=== PATIENT | female | born 1975 | race Caucasian/White ===

== ENCOUNTER 2019-11-12 09:46 | Emergency (ER) | payer OTHER, SELFPAY ==
--- NOTE | 2019-11-12 09:47 | XRR_ITS ---
PROCEDURE INFORMATION: Exam: XR Chest, 1 View Exam date and time: 11/12/2019 9:59 AM Age: 44 years old Clinical indication: Cough/congestion/chest pain TECHNIQUE: Imaging protocol: XR of the chest Views: 1 view. COMPARISON: No relevant prior studies available. FINDINGS: Lungs: No focal peripheral lung consolidation, air bronchogram formation, or silhouette sign. Pleural space: No pleural effusion or pneumothorax. Heart/Mediastinum: The cardiac silhouette is not enlarged. The mediastinal contours are normal. Bones/joints: Right rotator cuff calcific tendinitis. No acute osseous abnormality. Artifact (pen) projecting over the right shoulder girdle. XR/XR chest 1V portable [id number] IMPRESSION: No pneumonia.
[2019-11-12 10:07] LABS: Basophils % 0.4 %; Eosinophils # 0.2 10^3/uL (0.0-0.8); Hematocrit 36.4 % (37.0-47.0); Hemoglobin 11.3 g/dL (11.5-15.3); Lymphocytes # 3.6 10^3/uL (0.8-4.8); Mean Corpuscular Hemoglobin 26.7 pg (28.0-34.0); Mean Corpuscular Volume 85.8 fL (81-99); Mean Platelet Volume 8.8 fL (7.4-10.4); Monocytes # 0.6 10^3/uL (0.2-0.9); Monocytes % 7.8 %; Neutrophils # 3.6 10^3/uL (1.8-7.7); Neutrophils % 44.6 %; Nucleated Red Blood Cells % 0 %; Platelet Count 409 10^3/cmm (130-400); Red Blood Count 4.24 10^6/uL (4.1-5.3); Red Cell Distribution Width 14.9 % (12.1-15.1); White Blood Count 8.1 10^3/uL (4.0-10.0)
[2019-11-12 10:11] VITALS: BP 154/110; PULSE 90; RESP 16; TEMP 36.8; O2SAT 100; BMI 29.0
--- NOTE | 2019-11-12 10:17 | ED_ITS ---
Entered by Michael Tompkins, acting as scribe for Osiel Oakes DO Nov 12, 2019 09:46 HPI - Chest Pain General: Chief Complaint: Chest Pain Stated Complaint: Chest Pain,SOB Time Seen by Provider: 11/12/19 10:19 History of Present Illness: HPI narrative: 44 yo female presents with chest pain. Pt states that she has tightness in her chest. Pt states that the pain has passed but the tightness and shortness of breath is still present. Pt states th at she has had a cough. MD complaint: chest pain Pertinent past history: coronary artery disease Associated symptoms: Reports dyspnea; Deny abdominal pain, fever(s), nausea, palpitations, syncope or vomiting Review of Systems Const: Denies: fever, chills, body aches, fatigue, malaise or night sweats Eyes: Denies: change in vision or blurry vision ENMT: Denies: throat pain, oral sores/lesions, dental pain, nasal discharge or nasal congestion Card: Reports: chest pain; Denies: palpitations, irregular heart rhythm, edema, syncope, shortness of breath on exertion, shortness of breath when lying down or leg pain with exertion Resp: Reports: shortness of breath and non-productive cough; Denies: productive cough or wheezing GI: Denies: abdominal pain, nausea, vomiting, vomiting blood, coffee grounds in vomit, difficulty swallowing, heartburn/indigestion, diarrhea, constipation, cramping, blood in stool or black tarry stool : Denies: flank pain, painful urination, urinary frequency, urinary urgency, urinary incontinence or blood in urine Musc: Denies: neck pain, back pain, extremity pain, extremity swelling, joint pain or joint swelling Skin/Breast: Denies: rash, itching or redness Neuro: Denies: headache, numbness in extremities, weakness in extremities, changes in sensation, lack of coordination, difficulty walking, frequent falls, dizziness, vertigo or confusion Psych: Denies: anxiety, depression, loss of interest, visual hallucinations, auditory hallucinations, suicidal ideation or homicidal ideation Endo: Denies: excessive urination, excessive thirst, tired all the time or cold intolerance Stanley/Lymph: Denies: easy bruising, easy bleeding, petechiae, enlarged lymph nodes or tender lymph nodes PFSH ED PFSH: Statuses (acute, chronic, etc) shown below reflect problem list status as previously entered and may not be historically accurate Surgical History History of (Acute) Social History Smoking and tobacco status: never smoked Physical Exam Const: COMMON NORMALS: average body habitus, oriented x3 and alert GENERAL APPEARANCE: cooperative, comfortable, well kempt and well developed NUTRITIONAL APPEARANCE: not obese ORIENTATION/CONSCIOUSNESS: Yes awake, Yes oriented to person and Yes oriented to place HENMT: COMMON NORMALS: normocephalic, head/scalp atraumatic, EAC's normal, TM's normal bilaterally, external nose normal, moist oral mucous membranes and oropharynx normal HEAD & SCALP: normocephalic and atraumatic NOSE: external nose normal EXTERNAL AUDITORY CANAL: EAC's normal TYMPANIC MEMBRANE: TM's normal bilaterally MOUTH: oral and palatal mucosa normal, lip normal and tongue normal THROAT: posterior oropharynx normal and tonsils normal Eye: COMMON NORMALS: PERRL, EOMs intact bilaterally, conjunctivae normal and no scleral icterus CONJUNCTIVA: Yes conjunctivae normal PUPIL: Yes PERRL Neck/C-Spine: COMMON NORMALS: full ROM, no lymphadenopathy, supple, no meningeal signs and thyroid normal THYROID: thyroid normal and asymmetrical Lymph: LYMPHATIC: no lymphadenopathy noted Resp: COMMON NORMALS: normal respiratory effort, no retractions, no use of accessory muscles and clear to auscultation bilaterally AUSCULTATION: clear to auscultation bilaterally Cardio: COMMON NORMALS: regular rate and regular rhythm RATE: regular rate RHYTHM: regular rhythm HEART SOUNDS: no murmurs GI: COMMON NORMALS: normal to inspection, nondistended, normoactive bowel sounds, soft to palpation and no hepatosplenomegaly PALPATION: Yes soft and Yes no hepatosplenomegaly : COMMON NORMALS: Yes no CVA tenderness BLADDER/KIDNEY EXAM: Yes no CVA tenderness Back/Pelvis: COMMON NORMALS: no CVA tenderness LUMBAR SPINE/LOWER BACK: Yes normal to inspection Extremity: COMMON NORMALS: no clubbing, cyanosis or edema, no calf tenderness and no pedal edema Neuro: COMMON NORMALS: oriented x3 SENSORIUM/ORIENTATION: Yes alert, Yes oriented to person and Yes oriented to place MENINGEAL SIGNS: Yes no meningeal signs Psych: APPEARANCE: Yes well kempt Skin: COMMON NORMALS: no rashes or lesions noted and skin turgor normal GENERAL SKIN EXAM: no rashes or lesions noted and turgor normal Course ED course: Opponent x2-. Discussed with the patient we will discharge. Follow-up with Dr. Felder as an outpatient return if has further problems Vital Signs: Vital signs: Vital Signs Temperature 98.3 F 11/12/19 10:11 Pulse Rate 85 11/12/19 12:56 Respiratory Rate 16 11/12/19 12:56 Blood Pressure 124/89 11/12/19 12:56 Pulse Oximetry 95 11/12/19 12:56 MDM - Chest Pain Lab Data: Labs: Lab Results 11/12/19 11/12/19 11/12/19 Range/Units 10:01 10:01 10:01 WBC 8.1 (4.0-10.0) 10^3/ uL RBC 4.24 (4.1-5.3) 10^6/u L Hgb 11.3 L (11.5-15.3) g/dL Hct 36.4 L (37.0-47.0) % MCV 85.8 (81-99) fL MCH 26.7 L (28.0-34.0) pg MCHC 31.0 (30.0-36.0) g/dL RDW 14.9 (12.1-15.1) % Plt Count 409 H (130-400) 10^3/c mm MPV 8.8 (7.4-10.4) fL Neut % (Auto) 44.6 % Lymph % (Auto) 45.0 % [place] % (Auto) 7.8 % Eos % (Auto) 2.0 % Baso % (Auto) 0.4 % Neut # (Auto) 3.6 (1.8-7.7) 10^3/u L Lymph # (Auto) 3.6 (0.8-4.8) 10^3/u L [place] # (Auto) 0.6 (0.2-0.9) 10^3/u L Eos # (Auto) 0.2 (0.0-0.8) 10^3/u L Baso # (Auto) 0.0 (0.0-0.1) 10^3/u L Nucleated RBC % (a uto) 0 % Nucleated RBCs # 0.0 /100WBC D-Dimer (0-0.59) ug/mIFE U Sodium 134 L (136-145) mmol/L Potassium 3.9 (3.5-5.1) mmol/L Chloride 96 L (98-107) mmol/L Carbon Dioxide 26 (22-29) mmol/L Anion Gap 15.9 (5-19) BUN 10 (6-20) mg/dL Creatinine 0.9 (0.5-0.9) mg/dL GFR Calculation 68.0 L (90-130) mL/min Glucose 109 (74-109) mg/dL Calcium 9.6 (8.5-10.5) mg/dL Total Bilirubin 0.2 (0.15-1.2) mg/dL AST 20 (0-32) U/L ALT 15 (0-33) U/L Alkaline Phosphata se 60 (35-105) IU/L Troponin T Baselin e 6 (0-10) ng/mL Troponin T 120 Min [place] (0-10) ng/mL Delta Troponin T (0-10) ABS# Total Protein 8.6 (6.6-8.7) g/dL Albumin 4.2 (3.5-5.2) g/dL Globulin 4.4 (1.3-4.6) g/dL HCG, Qual (Negative) 11/12/19 11/12/19 11/12/19 Range/Units 10:01 10:01 11:57 WBC (4.0-10.0) 10^3/ uL RBC (4.1-5.3) 10^6/u L Hgb (11.5-15.3) g/dL Hct (37.0-47.0) % MCV (81-99) fL MCH (28.0-34.0) pg MCHC (30.0-36.0) g/dL RDW (12.1-15.1) % Plt Count (130-400) 10^3/c mm MPV (7.4-10.4) fL Neut % (Auto) % Lymph % (Auto) % [place] % (Auto) % Eos % (Auto) % Baso % (Auto) % Neut # (Auto) (1.8-7.7) 10^3/u L Lymph # (Auto) (0.8-4.8) 10^3/u L [place] # (Auto) (0.2-0.9) 10^3/u L Eos # (Auto) (0.0-0.8) 10^3/u L Baso # (Auto) (0.0-0.1) 10^3/u L Nucleated RBC % (a uto) % Nucleated RBCs # /100WBC D-Dimer 0.32 (0-0.59) ug/mIFE U Sodium (136-145) mmol/L Potassium (3.5-5.1) mmol/L Chloride (98-107) mmol/L Carbon Dioxide (22-29) mmol/L Anion Gap (5-19) BUN (6-20) mg/dL Creatinine (0.5-0.9) mg/dL GFR Calculation (90-130) mL/min Glucose (74-109) mg/dL Calcium (8.5-10.5) mg/dL Total Bilirubin (0.15-1.2) mg/dL AST (0-32) U/L ALT (0-33) U/L Alkaline Phosphata se (35-105) IU/L Troponin T Baselin e (0-10) ng/mL Troponin T 120 Min [place] 6.00 (0-10) ng/mL Delta Troponin T 0 (0-10) ABS# Total Protein (6.6-8.7) g/dL Albumin (3.5-5.2) g/dL Globulin (1.3-4.6) g/dL HCG, Qual Negative (Negative) Discharge Plan Discharge Patient Disposition: Home, Self-Care Clinical Impression: Atypical chest pain Condition: Stable Prescriptions: No Action levothyroxine 125 mcg Tablet 125 mcg PO DAILY RF: 0 Tylenol PM Extra Strength 25-500 mg Tablet 2 tab PO BEDTIME RF: 0 Vitamin D3 1 tab PO DAILY RF: 0 Discharge Orders: Discharge Order (Routine); Ordered 11/12/19 Ordered By: Osiel Oakes Referrals: Sebastian Felder DO [Primary Care Provider] - Discharge Diet: Usual diet Discharge Activity: Resume usual activity Activity Restrictions/Additional Instructions: Follow-up with Dr. Felder. Return to the ER if has worsening or change or problems Discharge Date/Time: 11/12/19 12:56 Coding Level of Care Code ED Director Of Marketing for Chg Fwd Exam Problem Focused The documentation recorded by the Turner parker Kialy, accurately reflects the service I personally performed and the decisions made by Champ davis Curtis L, DO Nov 12, 2019 09:46
[2019-11-12 10:23] LABS: Alanine Aminotransferase 15 U/L (0-33); Albumin Level 4.2 g/dL (3.5-5.2); Alkaline Phosphatase 60 IU/L (35-105); Anion Gap 15.9 (5-19); Aspartate Amino Transferase 20 U/L (0-32); Blood Urea Nitrogen 10 mg/dL (6-20); Calcium 9.6 mg/dL (8.5-10.5); Carbon Dioxide 26 mmol/L (22-29); Chloride 96 mmol/L (98-107); Globulin 4.4 g/dL (1.3-4.6); Glucose 109 mg/dL (74-109); Potassium 3.9 mmol/L (3.5-5.1); Sodium 134 mmol/L (136-145); Total Bilirubin 0.2 mg/dL (0.15-1.2); Total Protein 8.6 g/dL (6.6-8.7)
[2019-11-12 10:34] LABS: Troponin(5th) Baseline 6 ng/mL (0-10)
[2019-11-12 10:50] VITALS: BP 112/91; PULSE 81; RESP 18; O2SAT 95
[2019-11-12 11:11] LABS: D Dimer 0.32 ug/mIFEU (0-0.59)
[2019-11-12 11:22] LABS: HCG, Serum Qual Negative (Negative)
--- NOTE | 2019-11-12 11:47 | ECG_ITS ---
Measurements Intervals [place] Rate: 82 P: 39 AK: 170 QRS: 10 QRSD: 90 T: 30 QT: 382 QTc: 447 SINUS RHYTHM POSSIBLE RIGHT VENTRICULAR CONDUCTION DELAY [RSR (QR) IN V1/V2] No previous ECG available for comparison Electronically Signed On 11-12-2019 18:37:19 REJOGGER by Eliazbeth Kline M.D. [id number]
[2019-11-12 12:19] LABS: Troponin 5 2HR Delta 0 ABS# (0-10)
[2019-11-12 12:56] VITALS: BP 124/89; PULSE 85; RESP 16; O2SAT 95
--- NOTE | 2019-11-12 15:47 | ECG_ITS ---
Measurements Intervals [place] Rate: 91 P: 42 RI: 164 QRS: 9 QRSD: 86 T: 51 QT: 358 QTc: 442 SINUS RHYTHM No previous ECG available for comparison Electronically Signed On 11-12-2019 18:37:14 DIRECTOR POWER by Elizabeth Kline M.D. [email or web address]
== END 2019-11-12 12:56 | disposition home or self-care (01) ==
PROVIDERS: Physician Assistant; Emergency Provider Family Medicine; Family Provider Electrodiagnostic Medicine; PCP Electrodiagnostic Medicine
DX: R07.89 Other chest pain (principal)
CPT/HCPCS: 36415; 71045; 80053; 84484; 84703; 85025; 85378; 93005; 99281; 99283

== ENCOUNTER → 2019-12-15 17:53 | Outpatient (BNVA) | payer OTHER, SELFPAY | PROVIDERS: Family Provider Electrodiagnostic Medicine; PCP Electrodiagnostic Medicine; Visit Provider Nurse Practitioner | DX: J02.9 Acute pharyngitis, unspecified (principal); R50.9 Fever, unspecified | CPT/HCPCS: 87081; 87804; 87880 ==

== ENCOUNTER → 2020-07-02 11:16 | Outpatient (BNVA) | payer OTHER, SELFPAY | PROVIDERS: Family Provider Electrodiagnostic Medicine; PCP Electrodiagnostic Medicine; Visit Provider Nurse Practitioner Family | DX: Z11.59 Encounter for screening for other viral diseases (principal) | CPT/HCPCS: 87635 ==

== ENCOUNTER 2020-08-02 08:46 | Outpatient (CLI) | payer OTHER, SELFPAY ==
--- NOTE | 2020-08-02 08:50 | MM_ITS ---
WS: [id number] SCREENING DIGITAL MAMMOGRAM WITH CAD HISTORY: SCREENING COMPARISON: 01/29/2019 and 05/23/2017 Bilateral CC and MLO views submitted. Computer aided detection analyzed. Breast composition: There are scattered areas of fibroglandular density. No suspicious masses, microc alcifications or architectural distortion. MM/[place] [id number] IMPRESSION: BI-RADS: 1-Negative FOLLOW UP: 1 Year Follow-up
== END 2020-08-02 08:47 | disposition home or self-care (01) ==
LOC: RADSHAW 08:48
PROVIDERS: PCP Electrodiagnostic Medicine; Visit Provider Electrodiagnostic Medicine
DX: Z12.31 Encounter for screening mammogram for malignant neoplasm of breast (principal)
CPT/HCPCS: 77067

== ENCOUNTER → 2020-08-25 08:17 | Outpatient (BNVA) | payer OTHER, SELFPAY | PROVIDERS: PCP Electrodiagnostic Medicine; Referring Provider Family Medicine; Visit Provider Internal Medicine | DX: E03.9 Hypothyroidism, unspecified (principal); E04.9 Nontoxic goiter, unspecified; R63.5 Abnormal weight gain | CPT/HCPCS: 99204 ==

== ENCOUNTER 2020-08-25 14:42 | Outpatient (CLI) | payer OTHER, SELFPAY ==
[2020-08-25 16:07] LABS: Free T4 Free Thyroxine 1.43 ng/dL (0.82-1.77); Thyroid Stimulating Hormone 0.23 uIU/mL (0.27-4.20)
== END 2020-08-25 14:43 | disposition home or self-care (01) ==
LOC: LAB 14:46
PROVIDERS: PCP Family Medicine; Visit Provider Internal Medicine
DX: E03.9 Hypothyroidism, unspecified (principal); E04.9 Nontoxic goiter, unspecified
CPT/HCPCS: 36415; 84439; 84443

== ENCOUNTER 2020-09-24 09:17 | Outpatient (CLI) | payer OTHER, SELFPAY ==
--- NOTE | 2020-09-24 09:30 | US_ITS ---
WS: [id number] THYROID ULTRASOUND HISTORY: goiter, thyroid nodules, assessing for need for FNA COMPARISON: 01/26/2015, 05/15/2016 Right lobe: 4.9 cm x 2.6 cm x 2.5 cm. Volume: 16.8 cm3. Enlarged multinodular thyroid. There is a more focal prominence in the mid RIGHT gland with multiple ill-defined hypoechoic nodules. No increased vascularity. Very similar appearance to prior studies. T here is no discrete nodule that appears more suspicious than the remaining gland. Left lobe: 5.4 cm x 2.5 cm x 2.4 cm. Volume: 17.0 cm3. Enlarged multinodular gland. Multiple ill-defined nodules. There is no discrete nodule that appears m ore concerning than other areas of the gland. Isthmus: 0.8 cm. US/US thyroid [id number] IMPRESSION: 1. Enlarged multinodular goiter. 2. Although there are multiple ill-defined nodules none of these nodules by th emselves appear more significant than others. There is no nodule for which biop sy is recommended.
== END 2020-09-24 09:18 | disposition home or self-care (01) ==
LOC: US 09:18
PROVIDERS: PCP Family Medicine; Visit Provider Internal Medicine
DX: E04.9 Nontoxic goiter, unspecified (principal); E04.2 Nontoxic multinodular goiter
CPT/HCPCS: 76536

== ENCOUNTER → 2020-11-12 08:42 | Outpatient (BNVA) | payer OTHER, SELFPAY | PROVIDERS: PCP Family Medicine; Visit Provider Family Medicine | DX: M25.50 Pain in unspecified joint (principal); Z13.6 Encounter for screening for cardiovascular disorders; E55.9 Vitamin D deficiency, unspecified | CPT/HCPCS: 80053; 80061; 82306; 85025; 85651; 86038; 86140; 86431 ==

== ENCOUNTER → 2020-11-15 12:16 | Outpatient (BNVA) | payer OTHER, SELFPAY | PROVIDERS: PCP Family Medicine; Visit Provider Family Medicine | DX: D64.9 Anemia, unspecified (principal) | CPT/HCPCS: 82728; 83550 ==

== ENCOUNTER 2020-12-08 13:42 | Outpatient (CLI) | payer OTHER, SELFPAY ==
[2020-12-08 14:46] LABS: Free T4 Free Thyroxine 0.98 ng/dL (0.82-1.77); Thyroid Stimulating Hormone 6.42 uIU/mL (0.27-4.20)
== END 2020-12-08 13:43 | disposition home or self-care (01) ==
PROVIDERS: PCP Family Medicine; Visit Provider Internal Medicine
DX: E03.9 Hypothyroidism, unspecified (principal); E04.9 Nontoxic goiter, unspecified
CPT/HCPCS: 36415; 84439; 84443

== ENCOUNTER → 2021-02-11 09:12 | Outpatient (BNVA) | payer SELFPAY | PROVIDERS: PCP Family Medicine; Visit Provider Family Medicine | DX: D64.9 Anemia, unspecified (principal); I10 Essential (primary) hypertension; E03.9 Hypothyroidism, unspecified | CPT/HCPCS: 80048; 82728; 83550; 84439; 84443 ==

== ENCOUNTER → 2021-03-16 08:57 | Outpatient (BNVA) | payer BC, SELFPAY | PROVIDERS: PCP Family Medicine; Visit Provider Family Medicine | DX: D50.9 Iron deficiency anemia, unspecified (principal); E55.9 Vitamin D deficiency, unspecified; I10 Essential (primary) hypertension | CPT/HCPCS: 82306; 82728; 83550; 85025 ==

== ENCOUNTER → 2021-03-27 13:02 | Outpatient (BNVA) | payer BC, SELFPAY | PROVIDERS: PCP Family Medicine; Visit Provider Nurse Practitioner Family | DX: J02.9 Acute pharyngitis, unspecified (principal) | CPT/HCPCS: 87880 ==

== ENCOUNTER → 2021-04-22 14:28 | Outpatient (BNVA) | payer BC, SELFPAY | PROVIDERS: PCP Family Medicine; Visit Provider Family Medicine | DX: E03.9 Hypothyroidism, unspecified (principal) | CPT/HCPCS: 84439; 84443 ==